=== PATIENT | male | born 1995 | race Two or more races ===

== ENCOUNTER 2023-02-27 02:18 | Emergency (ER) | payer MEDICAID ==
[~2023-02-27] VITALS: Ht 170.2 cm; Wt 68.2 kg
[2023-02-27 02:36] VITALS: BP 127/73; PULSE 110; RESP 20; TEMP 98.5
[2023-02-27] MEDS ORDERED: DOXYCYCLINE HYCLATE 100 MG TABLET PO ONE (02:45)
[2023-02-27] MEDS ORDERED: DOXY-354 PO (02:47)
[2023-02-27] MEDS ORDERED: BACI28.410 TP (02:47)
== END 2023-02-27 03:10 | disposition home or self-care (01) ==
LOC: EMS 02:18
DX: S60.921A Unspecified superficial injury of right hand, initial encounter (principal); S60.922A Unspecified superficial injury of left hand, initial encounter; L03.114 Cellulitis of left upper limb; L03.113 Cellulitis of right upper limb; J45.909 Unspecified asthma, uncomplicated; F14.90 Cocaine use, unspecified, uncomplicated; Z90.49 Acquired absence of other specified parts of digestive tract; X58.XXXA Exposure to other specified factors, initial encounter; Y93.89 Activity, other specified; Y92.89 Other specified places as the place of occurrence of the external cause; Y99.8 Other external cause status
CPT/HCPCS: 99283